=== PATIENT | female | born 1980 | race African-American/Black ===

== ENCOUNTER 2016-08-30 12:57 | Emergency (ER) | payer OTHER, MEDICAID ==
[~2016-08-30] VITALS: Ht 172.7 cm; Wt 138.8 kg
[~2016-08-30 12:57] MED LIST: IBUP-23 PO
[2016-08-30 14:22] VITALS: BP 124/62
== END 2016-08-30 14:23 | disposition home or self-care (01) ==
LOC: ER 13:00
DX: S29.012A Strain of muscle and tendon of back wall of thorax, initial encounter (principal); S21.90XA Unspecified open wound of unspecified part of thorax, initial encounter; X58.XXXA Exposure to other specified factors, initial encounter; Y92.89 Other specified places as the place of occurrence of the external cause; Y93.89 Activity, other specified; Y99.8 Other external cause status
CPT/HCPCS: A4606; Z7610